=== PATIENT | female | born 1975 | race Caucasian/White ===

== ENCOUNTER 2025-05-28 16:05 | Emergency (ER) | payer OTHER, SELFPAY ==
--- OUTSIDE RECORDS SUMMARY | 2025-05-28 16:11 | XMS REPORT | Continuity of Care Document ---
Author Name Unknown Address [address] [place] [address] [facility] Address [address] [place] [address] Care Team Providers Care Paraffiner Name Role Phone PCP, PATIENT DOES NOT HAVE A Primary Care Physic maldonado Unavailable Charlotte Haines Attending Clinician Unavail able Ibrahima Tamze Attending Clinician Unavailable GEMMA ALFARO Attending Clinician Unavailab GEMMA Vanegas Attending Clinician Unavailab Gemma Vanegas DO Attending Clinician [phone] Luis Eduardo Escobar Attending Clinician Unavailable JUANCARLOS HORTON Attending Clinician Unavailable Juancarlos Evans Attending Clinician [phone] PABLITO ACE Attending Clinician Unavailable Pablito Ace MD Attending Clinician [phone] Doctor Unassigned, Luckey Attending Clinician Kimberley Luz MD Attending Clinician [phone] KIMBERLEY LOZADA Attending Clinician Unavailable [facility], Adc Cardio Fac Attending Clinician Unavail able 1, Adc Cardio Fac Room Attending Clinician Unava NILAY Corley APN Admitting Clinician Unavailable JUANCARLOS HORTON Admitting Clinician Unavailable PABLITO ACE Admitting Clinician Unavailable Payers Payer Name Policy Type Policy Number Effective Date Expirati on Date Source [employer] [id number] 2024 00:00:00 Problems Condition Name Condition Details Condition Category Status Onset Date Resolution Date Last Treatment Date Treating Clinician Comments Source [id number] Chronic fatigue Problem [facility] [id number] Overweight Problem Com mon [facility] [id number] Current moderate episode of major depressive disorder without prior episode Problem [facility] [id number] Vaginal bleeding Problem [facility] [id number] Recurrent major depressive disorder, in partial remission Problem [facility] [id number] Adrenal insufficie ncy Problem [facility] [id number] Primary insomnia Problem [facility] [id number] Anxiety, generalize d Problem [facility] [id number] Unable to concentrat e Problem [facility] [id number] Leukopenia , unspecifie d type Problem [facility] No known active problems No known active problems Disease [facility] Allergies, Adverse Reactions, Alerts Allergy Name Allergy Type Status Severity Reaction(s) Onset Date Inactive Date Treating Clinician Comments Source No Known Allergie s DA Active U 03-24 00:00: 00 [facility] Hydrocod one-Acet aminophe n Propensi ty to adverse reaction s Active Hives 02-19 00:00: 00 To face [facility] HYDROCOD ONE-ACET AMINOPHE N DRUG Active Hives 02-19 00:00: 00 [facility] Social History Social Habit Start Date Stop Date Quantity Comments Source History of Tobacco Use [facility] Sex Assigned At [facility] History SDOH Alcohol Binge [facility] SD[facility] Alcohol Frequency [facility] History SDOH Alcohol Std Drinks [facility] Alcoholic beverage intake 2024-05-23 00:00:00 2024-05-23 00:00:00 Current drinker of alcohol (finding) [facility] History of Social function 2024-05-23 00:00:00 2024-05-23 00:00:00 [facility] Exposure to SARS-CoV-2 (event) 2022-02-25 00:00:00 2022-03-07 17:31:[address] [facility] Alcohol intake 2022-02-23 00:00:00 2022-02-23 00:00:00 Current drinker of alcohol (finding) [facility] Tobacco use and exposure 2019-10-14 00:00:00 2019-10-14 00:00:00 Smokeless tobacco non-user [facility] Alcohol Comment 2016-02-20 00:00:00 2016-02-20 00:00:[address] [facility] Smoking Status Start Date Stop Date Source Never Smoker [facility] Medications Ordered Medication Name Filled Medication Name Start Date Stop Date Current Medication? Ordering Clinician Indication Dosage Frequency Signature (SIG) Comments Components Source Betamethaso ne Dipropionat e 0.05 % Betamethaso ne Dipropionat e 0.05 % -16 00:00: 00 No 1{appli cation} QD Betamethas one Dipropiona te 0.05 % Nitroglycer in 0.4 MG Nitroglycer in 0.4 MG 07 00:00: 00 No TID Nitroglyce rin 0.4 MG FLUoxetine HCl 20 MG FLUoxetine HCl 20 MG -11 00:00: 00 No 1{capsu le} QD FLUoxetine HCl 20 MG Kenalog (Triamcinol one) Kenalog (Triamcinol one) 05-28 00:00: 00 No 40mg [facility] cetirizine (ZYRTEC) tablet 10 mg 05-23 09:00: 00 05-23 08:15 :00 No 10mg 10 mg, Oral, ONCE, 1 dose, On Sun05/23/24 at 0400, [facility] predniSONE (DELTASONE) tablet 50 mg 05-23 08:15: 00 05-23 08:11 :00 No 50mg 50 mg, Oral, ONCE, 1 dose, On Sun05/23/24 at 0315, Routine [facility] predniSONE 10 mg tablet 05-23 00:00: 00 Yes [id number] Take 6 tablets by mouth daily for 4 days then take 4 tablets by mouth daily for 4 days then take 2 tablets by mouth daily for 4 days then take 1 tablet by mouth daily for 4 days then take 1/2 tablet by mouth daily for 4 days then stop. [facility] iopamidol (ISOVUE 370-500 mL) injection 70 mL 03-08 00:30: 00 03-07 23:16 :00 No [id number] 70mL 70 mL, Intravenou s, ONCE, 1 dose, On Sun03/07/22 at 1930, Routine [facility] FENTanyl PF (SUBLIMAZE (PF)) injection 50 mcg 03-07 22:59: 00 03-07 23:11 :00 No 50ug 50 mcg, Slow IV Push, ONCE, 1 dose, On Sun03/07/22 at 1800, STAT [facility] acetaminoph en-codeine (TYLENOL-CO DEINE #3) 300-30 mg tablet 03-07 00:00: 00 05-23 00:00 :00 No [id number] 1{tbl} Take 1 tablet by mouth every 8 (eight) hours as needed for Pain (scale 4-6). Indication s: acute pain [facility] methocarbam oL 500 mg tablet 03-07 00:00: 00 05-23 00:00 :00 No [id number] 500mg Take 1 tablet by mouth 3 (three) times daily as needed for Pain (scale 4-6) or Pain (scale 7-10). [facility] ketorolac (TORADOL) injection 30 mg 02-24 03:15: 00 02-24 02:13 :00 No 30mg 30 mg, Slow IV Push, ONCE, 1 dose, On Sun02/23/22 at 2215, Routine
[employer] team member approving Restricted medication : PABLITO ACE [facility] ibuprofen 800 mg tablet 5 00:00: 00 05-23 00:00 :00 No [id number] 800mg Take 1 tablet by mouth every 8 (eight) hours as needed for Pain (scale 4-6). [facility] phentermine 37.5 mg tablet 10-14 20:30: 57 Yes 37.5mg Take 37.5 mg by mouth daily with breakfast. [facility] ALPRAZolam (XANAX) 0.5 mg tablet 10-14 20:27: 35 Yes .5mg Take 0.5 mg by mouth at bedtime as needed. [facility] nitroglycer in 0.4 mg sublingual tablet 10-14 20:27: [address] 0.4 mg under the tongue every 5 (five) minutes as needed for Chest pain. [facility] phentermine 37.5 mg tablet 10-14 14:30: 57 Yes 37.5mg Take 37.5 mg by mouth daily with breakfast. [facility] ALPRAZolam (XANAX) 0.5 mg tablet 10-14 14:27: 35 Yes .5mg Take 0.5 mg by mouth at bedtime as needed. [facility] nitroglycer in 0.4 mg sublingual tablet 10-14 14:27: [address] 0.4 mg under the tongue every 5 (five) minutes as needed for Chest pain. [facility] No known medications No Un chelsey [facility] Immunizations Ordered Immunization Name Filled Immunization Name Date Status Comments Source Td 2016-02-20 00:00:[address] [facility] Td 2016-02-20 00:00:[address] [facility] Td 2016-02-20 00:00:[address] [facility] Td 2016-02-20 00:00:[address] [facility] Td 2016-02-20 00:00:[address] [facility] Td 2016-02-20 00:00:[address] [facility] Td 2016-02-20 00:00:[address] [facility] Td 2016-02-20 00:00:[address] [facility] Td 2016-02-20 00:00:[address] [facility] Td 2016-02-20 00:00:[address] [facility] TD, NOS Unknown Completed [facility] Vital Signs Vital Name Observation Time Observation Value Comments Criss monteiro height 2025-02-11 11:30:00 68 [in_i] Commo n [facility] weight 2025-02-11 11:30:00 164.4 [lb_av] Co mmon [facility] temperature 2025-02-11 11:30:00 97.2 [degF] Com mon [facility] bmi 2025-02-11 11:30:00 24.99 kg/m2 Comm on [facility] oximetry 2025-02-11 11:30:00 99 % Commo n [facility] respiratory rate 2025-02-11 11:30:00 16 /min [facility] blood pressure systolic 2025-02-11 11:30:00 118 mm[Hg] Common [facility] blood pressure diastolic 2025-02-11 11:30:00 62 mm[Hg] Common [facility] height 2025-01-14 11:30:00 68 [in_i] Commo n [facility] weight 2025-01-14 11:30:00 165.0 [lb_av] Co mmon [facility] temperature 2025-01-14 11:30:00 97.2 [degF] Com mon [facility] bmi 2025-01-14 11:30:00 25.09 kg/m2 Comm on [facility] oximetry 2025-01-14 11:30:00 100 % Commo n [facility] respiratory rate 2025-01-14 11:30:00 15 /min [facility] blood pressure systolic 2025-01-14 11:30:00 101 mm[Hg] [facility] blood pressure diastolic 2025-01-14 11:30:00 59 mm[Hg] Common [facility] height 2025-01-05 13:00:00 68 [in_i] Commo n [facility] weight 2025-01-05 13:00:00 165.0 [lb_av] Co mmon [facility] temperature 2025-01-05 13:00:00 97.3 [degF] Com mon [facility] bmi 2025-01-05 13:00:00 25.09 kg/m2 Comm on [facility] oximetry 2025-01-05 13:00:00 99 % Commo n [facility] respiratory rate 2025-01-05 13:00:00 16 /min [facility] blood pressure systolic 2025-01-05 13:00:00 124 mm[Hg] Common [facility] blood pressure diastolic 2025-01-05 13:00:00 62 mm[Hg] [facility] height 2024-12-16 10:30:00 68 [in_i] Commo n [facility] weight 2024-12-16 10:30:00 163 [lb_av] Comm on [facility] temperature 2024-12-16 10:30:00 97.2 [degF] Com [facility] bmi 2024-12-16 10:30:00 24.78 kg/m2 Comm on [facility] oximetry 2024-12-16 10:30:00 97 % Commo n [facility] blood pressure systolic 2024-12-16 10:30:00 122 mm[Hg] [facility] blood pressure diastolic 2024-12-16 10:30:00 60 mm[Hg] Common [facility] height 2024-06-11 13:30:00 69 [in_i] Commo n [facility] weight 2024-06-11 13:30:00 163.4 [lb_av] Co mmon [facility] temperature 2024-06-11 13:30:00 97.2 [degF] Com [facility] bmi 2024-06-11 13:30:00 24.13 kg/m2 Comm on [facility] oximetry 2024-06-11 13:30:00 99 % Commo n [facility] respiratory rate 2024-06-11 13:30:00 16 /min Common [facility] blood pressure systolic 2024-06-11 13:30:00 122 mm[Hg] [facility] blood pressure diastolic 2024-06-11 13:30:00 64 mm[Hg] [facility] height 2024-05-28 13:40:00 69 [in_i] Commo n [facility] weight 2024-05-28 13:40:00 164.4 [lb_av] Co mmon [facility] temperature 2024-05-28 13:40:00 97.3 [degF] Com [facility] bmi 2024-05-28 13:40:00 24.27 kg/m2 Comm on [facility] oximetry 2024-05-28 13:40:00 99 % Commo n [facility] respiratory rate 2024-05-28 13:40:00 17 /min [facility] blood pressure systolic 2024-05-28 13:40:00 96 mm[Hg] [facility] blood pressure diastolic 2024-05-28 13:40:00 56 mm[Hg] [facility] Systolic blood pressure 2024-05-23 08:00:00 123 mm[Hg] [facility] Diastolic blood pressure 2024-05-23 08:00:00 79 mm[Hg] [facility] Heart rate 2024-05-23 08:00:00 70 /min [facility] 2024-05-23 08:00:[address] [facility] Respiratory rate 2024-05-23 08:00:00 18 /min [facility] Body height 2024-05-23 08:00:00 175.3 cm [facility] Body weight 2024-05-23 08:00:00 73.483 kg [facility] BMI 2024-05-23 08:00:00 23.92 kg/m2 [facility] Oxygen saturation in Arterial blood by Pulse oximetry 2024-05-23 08:00:00 99 /min [facility] Systolic blood pressure 2022-03-08 01:18:00 125 mm[Hg] [facility] Diastolic blood pressure 2022-03-08 01:18:00 73 mm[Hg] [facility] Heart rate 2022-03-08 01:18:00 55 /min [facility] Respiratory rate 2022-03-08 01:18:00 20 /min [facility] Oxygen saturation in Arterial blood by Pulse oximetry 2022-03-08 01:18:00 98 /min [facility] Body temperature 2022-03-07 22:32:[address] [facility] Body height 2022-03-07 22:32:00 175.3 cm [facility] Body weight 2022-03-07 22:32:00 75.751 kg [facility] BMI 2022-03-07 22:32:00 24.66 kg/m2 [facility] Systolic blood pressure 2022-02-24 03:00:00 112 mm[Hg] [facility] Diastolic blood pressure 2022-02-24 03:00:00 76 mm[Hg] [facility] Heart rate 2022-02-24 03:00:00 49 /min [facility] Respiratory rate 2022-02-24 03:00:00 17 /min [facility] Oxygen saturation in Arterial blood by Pulse oximetry 2022-02-24 03:00:00 99 /min [facility] Body temperature 2022-02-24 00:40:[address] [facility] Body height 2022-02-24 00:40:00 175.3 cm [facility] Body weight 2022-02-24 00:40:00 75.297 kg [facility] BMI 2022-02-24 00:40:00 24.51 kg/m2 [facility] Systolic blood pressure 2019-10-14 20:26:00 102 mm[Hg] [facility] Diastolic blood pressure 2019-10-14 20:26:00 68 mm[Hg] [facility] Heart rate 2019-10-14 20:26:00 59 /min [facility] Respiratory rate 2019-10-14 20:26:00 19 /min [facility] Body height 2019-10-14 20:26:00 175.3 cm [facility] Body weight 2019-10-14 20:26:00 72.893 kg [facility] BMI 2019-10-14 20:26:00 23.73 kg/m2 [facility] Oxygen saturation in Arterial blood by Pulse oximetry 2019-10-14 20:26:00 98 /min [facility] Systolic blood pressure 2019-10-14 21:54:00 108 mm[Hg] [facility] Diastolic blood pressure 2019-10-14 21:54:00 67 mm[Hg] [facility] Heart rate 2019-10-14 21:54:00 50 /min [facility] Body height 2019-10-14 21:54:00 175.3 cm [facility] Body weight 2019-10-14 21:54:00 72.576 kg [facility] BMI 2019-10-14 21:54:00 23.63 kg/m2 [facility] Procedures Procedure Date / Time Performed Performing Clinicia n Source CT THORAX W CONTRAST 2022-03-07 23:26:[address] [facility] TROPONIN I 2022-03-07 23:03:00 Juancarlos Horton [facility] COMP. METABOLIC PANEL ([id number]) 2022-03-07 23:03:[address] [facility] CBC WITH DIFF 2022-03-07 23:03:00 Juancarlos Horton [facility] CONSENT/REFUSAL FOR DIAGNOSIS AND TREATMENT 2022-03-07 22:27:03 Doctor Unassigned, Luckey [facility] TROPONIN I 2022-02-24 01:41:00 Pablito Ace [facility] COMP. METABOLIC PANEL ([id number]) 2022-02-24 01:41:[address] [facility] CBC WITH DIFF 2022-02-24 01:41:00 Pablito Ace [facility] XR CHEST 1 VW 2022-02-24 01:36:00 Pablito Ace [facility] NOTICE OF PRIVACY PRACTICES 2022-02-24 00:27:05 Doctor Unassigned, Luckey [facility] CONSENT/REFUSAL FOR DIAGNOSIS AND TREATMENT 2022-02-24 00:26:43 Doctor Unassigned, Luckey [facility] EKG-12 LEAD 2019-10-14 20:34:27 Kimberley Lozada [facility] ASSIGNMENT OF BENEFITS 2019-10-14 19:52:12 Docto r Unassigned, Luckey [facility] Encounters Start Date/Time End Date/Time Encounter Type Admission Type Attending Clinicians Care Facility Care Department Encounter ID Source 2024-10-10 16:17:01 Outpatient EstebanCharlotte antonio [facility] [id number] [facility] 2024-09-29 12:29:00 Outpatient YancySaCharlotte [facility] [id number] [facility] 2024-06-11 12:31:00 Outpatient YancySaCharlotte [facility] [id number] [facility] 2024-06-09 14:57:00 Outpatient Ibrahima Tamez [facility] [id number] [facility] 2024-05-28 13:06:01 Outpatient Ibrahima Tamez [facility] [id number] [facility] 2025-03-02 00:00:00 2025-03-02 00:00:00 (TEL) STLMLC STLMLC [id number] [facility] 2025-02-16 00:00:00 2025-02-16 00:00:00 (TEL) STLMLC STLMLC [id number] [facility] 2025-02-11 00:00:00 2025-02-11 00:00:00 OFFICE VISIT ESTAB PT LEVEL 4 STLMLC STLMLC [id number] [facility] 2025-02-11 00:00:00 2025-02-11 00:00:00 (TEL) STLMLC STLMLC [id number] [facility] 2025-02-04 00:00:00 2025-02-04 00:00:00 (TEL) STLMLC STLMLC [id number] [facility] 2025-01-26 00:00:00 2025-01-26 00:00:00 OFFICE VISIT ESTAB PT LEVEL 3 STLMLC STLMLC [id number] [facility] 2025-01-23 00:00:00 2025-01-23 00:00:00 (TEL) STLMLC STLMLC [id number] [facility] 2025-01-15 00:00:00 2025-01-15 00:00:00 (TEL) STLMLC STLMLC [id number] [facility] 2025-01-14 00:00:00 2025-01-14 00:00:00 OFFICE VISIT ESTAB PT LEVEL 3 STLMLC STLMLC [id number] [facility] 2025-01-05 00:00:00 2025-01-05 00:00:00 OFFICE VISIT ESTAB PT LEVEL 3 STLMLC STLMLC [id number] [facility] 2024-12-16 00:00:00 2024-12-16 00:00:00 OFFICE VISIT ESTAB PT LEVEL 3 STLMLC STLMLC [id number] [facility] 2024-12-05 00:00:00 2024-12-05 00:00:00 OFFICE VISIT ESTAB PT LEVEL 3 STLMLC STLMLC [id number] [facility] 2024-12-05 00:00:00 2024-12-05 00:00:00 (TEL) STLMLC STLMLC [id number] [facility] 2024-12-04 00:00:00 2024-12-04 00:00:00 (TEL) STLMLC STLMLC [id number] [facility] 2024-12-04 00:00:00 2024-12-04 00:00:00 (TEL) STLMLC STLMLC [id number] [facility] 2024-10-13 00:00:00 2024-10-13 00:00:00 (TEL) STLMLC STLMLC [id number] [facility] 2024-10-10 00:00:00 2024-10-10 00:00:00 (TEL) STLMLC STLMLC [id number] [facility] 2024-06-13 00:00:00 2024-06-13 00:00:00 (TEL) STLMLC STLMLC [id number] [facility] 2024-06-11 00:00:00 2024-06-11 00:00:00 (WELLNESS) Wellness Visit STLMLC STLMLC [id number] [facility] 2024-06-11 00:00:00 2024-06-11 00:00:00 (WEB) STLMLC STLMLC [id number] [facility] 2024-05-28 00:00:00 2024-05-28 00:00:00 OFFICE VISIT NEW PT LEVEL 4 STLMLC STLMLC [id number] [facility] 2024-05-28 00:00:00 2024-05-28 00:00:00 (TEL) STLMLC STLMLC [id number] [facility] 2024-05-23 03:06:00 2024-05-23 04:29:00 Emergency X GEMMA ALFARO, GEMMA [facility] ERT [id number] [facility] 2024-05-23 03:06:00 2024-05-23 04:29:00 Emergency Gemma Alfaro [facility] [id number] [facility] 2023-03-24 16:17:00 2023-03-24 17:45:00 Emergency EM Luis Eduardo Escobar [facility] ER [id number] 2022-03-07 17:33:00 2022-03-07 20:35:00 Emergency X JUANCARLOS HORTON [facility] ERT [id number] [facility] 2022-03-07 17:33:00 2022-03-07 20:35:00 [facility] [id number] [facility] 2022-02-23 19:43:00 2022-02-23 22:20:00 Emergency X PABLITO ACE [facility] ERT [id number] [facility] 2022-02-23 19:43:00 2022-02-23 22:20:00 Emergency Pablito Ace [facility] 1..840.114 350.1.13.10 [id number] [id number] [facility] 2022-02-23 00:00:00 2022-02-23 00:00:00 Orders Only Doctor Unassigned, Luckey [facility] [id number] [id number] [id number] [id number] [facility] 2019-10-15 11:51:30 2019-12-26 14:53:55 [facility] [id number] [id number] [id number] [id number] [facility] 2019-11-24 00:00:00 2019-11-24 00:00:00 [facility] [id number] [id number] 4.2.7.2.686 [id number] [facility] 2019-10-14 13:52:17 2019-11-22 12:53:55 [facility] [id number] [id number] [id number] [id number] [facility] 2019-10-15 10:20:00 2019-10-15 11:51:41 Outpatient R [facility]NA[facility] [id number] [facility] 2019-10-15 00:00:00 2019-10-15 00:00:00 Patient Secure Msg [facility] [id number] [id number] 4.2.7.2.686 [id number] [facility] 2019-10-14 15:22:03 2019-10-14 16:22:03 Laboratory Only Tech, Adc Cardio Fac 1, Adc Cardio Fac Room Anmol [facility] [id number] [id number] [id number] [facility] 2019-10-14 00:00:00 2019-10-14 00:00:00 Orders Only Doctor Unassigned, Luckey [facility] [id number] [id number] 4.2.7.2.686 [id number] [facility] 2019-10-14 00:00:00 2019-10-14 00:00:00 Letter (Out) Kimberley Lozada [facility] [id number] [id number] [id number] [id number] [facility] Results Test Description Test Time Test Comments Results Result Co mments Source INDICATED URINE [id number] 00:00:00* Test Item Value Reference Range Interpretation Comme nts NUCLEATED RBCS (test code = 29291-7) 0.0 /100 WBC'S See_Comment [Automated message] The system which generated this result transmitted reference range: 0.0 /100 WBC'S. The reference range was not used to interpret this result as normal/abnormal. ABSOLUTE EOSINOPHILS (test code = 04798-4) 0.04 K/UL See_Comment [Automated message] The system which generated this result transmitted reference range: 0.00-0.50 K/UL. The reference range was not used to interpret this result as normal/abnormal. ABSOLUTE LYMPHOCYTES (test code = 04228-3) 1.84 K/UL See_Comment [Automated message] The system which generated this result transmitted reference range: 1.00-4.00 K/UL. The reference range was not used to interpret this result as normal/abnormal. ABSOLUTE MONOCYTES (test code = 49989-8) 0.38 K/UL See_Comment [Automated message] The system which generated this result transmitted reference range: 0.20-1.00 K/UL. The reference range was not used to interpret this result as normal/abnormal. ABSOLUTE NEUTROPHILS (test code = 50721-9) 2.03 K/UL See_Comment [Automated message] The system which generated this result transmitted reference range: 1.50-7.50 K/UL. The reference range was not used to interpret this result as normal/abnormal. BASOPHILS (test code = 54279-5) 0.9 % EOSINOPHILS (test code = 67402-4) 0.9 % HEMATOCRIT (test code = 31938-9) 39.2 % See_Comment [Automated message] The system which generated this result transmitted reference range: 34.0-45.0 %. The reference range was not used to interpret this result as normal/abnormal. HEMOGLOBIN (test code = 718-7) 13.2 G/DL See_Comment [Automated message] The system which generated this result transmitted reference range: 11.5-15.5 G/DL. The reference range was not used to interpret this result as normal/abnormal. LYMPHOCYTES (test code = 25682-5) 42.4 % MCH (test code = 61206-4) 31.0 PG See_Comment [Automated message] The system which generated this result transmitted reference range: 25.0-33.0 PG. The reference range was not used to interpret this result as normal/abnormal. MCHC (test code = 52109-6) 33.7 G/DL See_Comment [Automated message] The system which generated this result transmitted reference range: 31.0-36.0 G/DL. The reference range was not used to interpret this result as normal/abnormal. MCV (test code = 13783-8) 92.0 fL See_Comment [Automated message] The system which generated this result transmitted reference range: 80.0-99.0 fL. The reference range was not used to interpret this result as normal/abnormal. MONOCYTES (test code = 69134-8) 8.8 % NEUTROPHILS (test code = 02787-8) 46.8 % PLATELET COUNT (test code = 99302-0) 207 K/UL See_Comment [Automated message] The system which generated this result transmitted reference range: 130-400 K/UL. The reference range was not used to interpret this result as normal/abnormal. RBC (test code = 05756-5) 4.26 M/UL See_Comment [Automated message] The system which generated this result transmitted reference range: 3.80-5.40 M/UL. The reference range was not used to interpret this result as normal/abnormal. RDW (test code = 67842-4) 12.6 % See_Comment [Automated message] The system which generated this result transmitted reference range: 11.5-15.0 %. The reference range was not used to interpret this result as normal/abnormal. WBC (test code = 51210-8) 4.3 K/UL See_Comment [Automated message] The system which generated this result transmitted reference range: 3.5-11.0 K/UL. The reference range was not used to interpret this result as normal/abnormal. CORTISOL, RANDOM (test code = 2143-6) 3.0 UG/DL SEE BELOW UG/DL L HEMOGLOBIN A1c (test code = 4548-4) 5.4 % See_Comment [Automated message] The system which generated this result transmitted reference range: 4.2-5.6 %. The reference range was not used to interpret this result as normal/abnormal. TSH REFLEX TO FREE T4 (test code = 94951-2) 1.560 UIU/ML See_Comment [Automated message] The system which generated this result transmitted reference range: 0.400-4.100 UIU/ML. The reference range was not used to interpret this result as normal/abnormal. VITAMIN B-12 (test code = 2132-9) 630 PG/ML See_Comment [Automated message] The system which generated this result transmitted reference range: 200-950 PG/ML. The reference range was not used to interpret this result as normal/abnormal. VITAMIN D,1,25-DIHYDROXY (test code = 1649-3) 76.1 PG/ML See_Comment [Automated message] The system which generated this result transmitted reference range: 20.0-82.0 PG/ML. The reference range was not used to interpret this result as normal/abnormal. APPEARANCE (test code = 5767-9) CLEAR CLEAR BACTERIA (test code = 48469-7) NONE SEEN NONE SEEN BILIRUBIN (test code = 5770-3) NEGATIVE NEGATIVE CASTS, HYALINE (test code = 47005-1) NONE SEEN NONE-TRACE COLOR (test code = 5778-6) YELLOW YELLOW-STRAW EPITHELIAL CELLS (test code = 73696-5) 0-5 /HPF See_Comment [Automated message] The system which generated this result transmitted reference range: 0-10 /HPF. The reference range was not used to interpret this result as normal/abnormal. GLUCOSE (test code = 5792-7) NEGATIVE NEGATIVE KETONES (test code = 5797-6) NEGATIVE NEGATIVE LEUKOCYTE ESTERASE (test code = 5799-2) TRACE NEGATIVE A NITRITE (test code = 5802-4) NEGATIVE NEGATIVE OCCULT BLOOD (test code = 97509-8) NEGATIVE NEGATIVE pH (test code = 5803-2) 5.5 5.0-9.0 PROTEIN (test code = 26695-8) NEGATIVE NEGATIVE RED BLOOD CELLS (test code = 23587-8) 0-2 /HPF See_Comment [Automated message] The system which generated this result transmitted reference range: 0-2 /HPF. The reference range was not used to interpret this result as normal/abnormal. SPECIFIC GRAVITY (test code = 5811-5) 1.017 1.005-1.035 UROBILINOGEN (test code = 55980-1) 1.0 MG/DL See_Comment [Automated message] The system which generated this result transmitted reference range: <=2.0 MG/DL. The reference range was not used to interpret this result as normal/abnormal. WHITE BLOOD CELLS (test code = 89465-1) 6-10 /HPF See_Comment A [Automated message] The system which generated this result transmitted reference range: 0-5 /HPF. The reference range was not used to interpret this result as normal/abnormal. CALC LDL CHOL (test code = 93241-9) 116 MG/DL See_Comment H [Automated message] The system which generated this result transmitted reference range: <100 MG/DL. The reference range was not used to interpret this result as normal/abnormal. CHOLESTEROL (test code = 2093-3) 208 MG/DL See_Comment H [Automated message] The system which generated this result transmitted reference range: <200 MG/DL. The reference range was not used to interpret this result as normal/abnormal. HDL CHOLESTEROL (test code = 2085-9) 77 MG/DL See_Comment [Automated message] The system which generated this result transmitted reference range: >39 MG/DL. The reference range was not used to interpret this result as normal/abnormal. RISK RATIO LDL/HDL (test code = 15388-2) 1.51 RATIO See_Comment [Automated message] The system which generated this result transmitted reference range: <3.22 RATIO. The reference range was not used to interpret this result as normal/abnormal. TRIGLYCERIDES (test code = 2571-8) 48 MG/DL See_Comment [Automated message] The system which generated this result transmitted reference range: <150 MG/DL. The reference range was not used to interpret this result as normal/abnormal. ALBUMIN (test code = 1751-7) 4.3 G/DL See_Comment [Automated message] The system which generated this result transmitted reference range: 3.5-5.2 G/DL. The reference range was not used to interpret this result as normal/abnormal. ALKALINE PHOSPHATASE (test code = 6768-6) 70 U/L See_Comment [Automated message] The system which generated this result transmitted reference range: 40-125 U/L. The reference range was not used to interpret this result as normal/abnormal. BILIRUBIN, TOTAL (test code = 1975-2) 0.3 MG/DL See_Comment [Automated message] The system which generated this result transmitted reference range: <=1.2 MG/DL. The reference range was not used to interpret this result as normal/abnormal. BUN (test code = 3094-0) 13 MG/DL See_Comment [Automated message] The system which generated this result transmitted reference range: 6-20 MG/DL. The reference range was not used to interpret this result as normal/abnormal. CALCIUM (test code = 39543-4) 9.8 MG/DL See_Comment [Automated message] The system which generated this result transmitted reference range: 8.5-10.5 MG/DL. The reference range was not used to interpret this result as normal/abnormal. CALC A/G RATIO (test code = 1759-0) 1.7 RATIO See_Comment [Automated message] The system which generated this result transmitted reference range: 1.0-2.6 RATIO. The reference range was not used to interpret this result as normal/abnormal. CALC BUN/CREAT (test code = 3097-3) 13 RATIO See_Comment [Automated message] The system which generated this result transmitted reference range: 6-28 RATIO. The reference range was not used to interpret this result as normal/abnormal. CALC GLOBULIN (test code = 08531-2) 2.6 G/DL See_Comment [Automated message] The system which generated this result transmitted reference range: 1.9-3.7 G/DL. The reference range was not used to interpret this result as normal/abnormal. CARBON DIOXIDE (test code = 1963-8) 28 MEQ/L See_Comment [Automated message] The system which generated this result transmitted reference range: 19-31 MEQ/L. The reference range was not used to interpret this result as normal/abnormal. CHLORIDE (test code = 2075-0) 104 MEQ/L See_Comment [Automated message] The system which generated this result transmitted reference range: 95-107 MEQ/L. The reference range was not used to interpret this result as normal/abnormal. CREATININE (test code = 2160-0) 1.01 MG/DL See_Comment [Automated message] The system which generated this result transmitted reference range: 0.60-1.30 MG/DL. The reference range was not used to interpret this result as normal/abnormal. eGFR (2020 CKD-EPI) (test code = 42415-4) 68 ML/MIN/1.73 See_Comment [Automated message] The system which generated this result transmitted reference range: >60 ML/MIN/1.73. The reference range was not used to interpret this result as normal/abnormal. GLUCOSE (test code = 1558-6) 77 MG/DL See_Comment [Automated message] The system which generated this result transmitted reference range: 70-99 MG/DL. The reference range was not used to interpret this result as normal/abnormal. POTASSIUM (test code = 2823-3) 4.1 MEQ/L See_Comment [Automated message] The system which generated this result transmitted reference range: 3.5-5.4 MEQ/L. The reference range was not used to interpret this result as normal/abnormal. PROTEIN, TOTAL (test code = 2885-2) 6.9 G/DL See_Comment [Automated message] The system which generated this result transmitted reference range: 6.1-8.3 G/DL. The reference range was not used to interpret this result as normal/abnormal. AST (test code = 1920-8) 13 U/L See_Comment [Automated message] The system which generated this result transmitted reference range: 9-40 U/L. The reference range was not used to interpret this result as normal/abnormal. ALT (test code = 1742-6) 14 U/L See_Comment [Automated message] The system which generated this result transmitted reference range: 5-40 U/L. The reference range was not used to interpret this result as normal/abnormal. SODIUM (test code = 2951-2) 140 MEQ/L See_Comment [Automated message] The system which generated this result transmitted reference range: 133-146 MEQ/L. The reference range was not used to interpret this result as normal/abnormal. D-DIMER [id number] 16:58:00* Test Item Value Reference Range Interpretation Comme nts D-DIMER QUANT (test code = DDIMER) < 100 D-DU 0-400 N Alere Triage values presented in units of mass (ng/mL)of D-dimer, also known as D-dimer units (D-DU).* Cut-off: 400 ng/mL Results of the D-Dimer test should always be interpretedin conjunction with the patient's medical history, clinicalpresentation, and other findings. Clinical diagnosis shouldnot be based on the results of D-Dimer alone.Patients with a distal DVT may have a normal D-Dimer result. TROP-I HIGH [id number] 16:50:00* Test Item Value Reference Range Interpretation Comme nts TROP-I HIGH SENSITIVITY (test code = TROPIHS) < 4 ng/L < 51 - The use of serial sampling and testing protocol is a recommended practice.- An elevated troponin level alone is often not sufficient for diagnosis of myocardial infarction.Results of this assay method may be falsely depressed orelevated if patient is taking high doses of Biotin. COMPREHENSIVE METABOLIC [id number] 16:50:00* Test Item Value Reference Range Interpretation Comme nts SODIUM (test code = NA) 142 MMOL/L 133-145 N POTASSIUM (test code = K) 3.3 MMOL/L 3.6-5.2 L CHLORIDE (test code = CL) 107 MMOL/L 100-108 N CARBON DIOXIDE (test code = CO2) 23 MMOL/L 22-32 N GLUCOSE (test code = GLU) 101 MG/DL 65-99 H Results of this assay method may be falsely depressed orelevated if patient is taking sulfasalazine. BLOOD UREA NITROGEN (test code = BUN) 12 MG/DL 6-20 N GLOMERULAR FILTRATION RATE (test code = GFR) 81 58-135 N The Glomerular Filtration Rate is a calculated parameterbased on serum Creatinine, patient age and sex. GFR valuesless than 60 mL/min/1.73 square meters are indicative ofChronic Kidney Disease. Values less than 15 mL/min/1.73square meters indicate Kidney failure. The calculation forGFR is based on the CKD-EPI (202) calculation. This formulais race indifferent and is the recommended formula for GFRby the National Kidney Foundation for Adults.The GFR will not calculate if the sex is unknown or if thepatient's age is <18 years. CREATININE (test code = CREAT) 0.88 MG/DL 0.60-1.00 N TOTAL PROTEIN (test code = PROT) 6.3 G/DL 6.4-8.2 L ALBUMIN (test code = ALB) 3.5 G/DL 3.4-5.0 N GLOBULIN (test code = GLOB) 2.8 G/DL 1.5-3.8 N ALBUMIN/GLOBULIN RATIO (test code = A/G) 1.3 1.1-2.2 N CALCIUM (test code = CA) 8.8 MG/DL 8.7-10.5 N BILIRUBIN TOTAL (test code = BILT) 0.7 MG/DL 0.0-1.0 N SGOT/AST (test code = AST) 17 Units/L 15-37 N Results of this assay method may be falsely depressed orelevated if patient is taking sulfasalazine. SGPT/ALT (test code = ALT) 22 Units/L 30-65 L Results of this assay method may be falsely depressed orelevated if patient is taking sulfasalazine. ALKALINE PHOSPHATASE TOTAL (test code = ALKP) 68 Units/L 50-136 N HCG SERUM [id number] 16:41:00* Test Item Value Reference Range Interpretation Comme nts HCG SERUM QUAL (test code = HCGQL) NEGATIVE NEGATIVE False negatives may occur when levels of hCGare below 10 mIU/ml. When is still suspected, a new specimenshould be obtained after 48 hours and re-tested.If waiting 48 hours is not medically advisable,the test result should be confirmed using aquantitative hCG assay. CBC W/AUTO [id number] 16:35:00* Test Item Value Reference Range Interpretation Comme nts WHITE BLOOD CELL (test code = WBC) 10.44 x10 3/uL 4.80-10.80 N RED BLOOD CELL (test code = RBC) 4.07 x10 6/uL 4.2-5.4 L HEMOGLOBIN (test code = HGB) 12.1 G/DL 12.0-16.0 N HEMATOCRIT (test code = HCT) 36.4 % 37-47 L MEAN CELL VOLUME (test code = MCV) 89.4 FL 81-99 N MEAN CELL HGB (test code = MCH) 29.7 PG 27-31 N MEAN CELL HGB CONCENTRATION (test code = MCHC) 33.2 G/DL 33-37 N RED CELL DISTRIBUTION WIDTH (test code = RDW) 12.5 % 11.5-14.5 N PLATELET COUNT (test code = PLT) 162 x10 3/uL 150-450 N MEAN PLATELET VOLUME (test code = MPV) 10.2 FL 7.4-10.4 N NEUTROPHIL % (test code = NT%) 84.8 % 42-86 N LYMPHOCYTE % (test code = LY%) 7.1 % 24-44 L MONOCYTE % (test code = MO%) 7.8 % 0.0-4.0 H EOSINOPHIL % (test code = EO%) 0.2 % 0.0-2.7 N BASOPHIL % (test code = BA%) 0.1 % 0.0-0.5 N NEUTROPHIL # (test code = NT#) 8.86 x10 3/uL 1.8-7.7 H LYMPHOCYTE # (test code = LY#) 0.74 x10 3/uL 1.0-4.8 L MONOCYTE # (test code = MO#) 0.81 x10 3/uL 0.0-0.8 H EOSINOPHIL # (test code = EO#) 0.02 x10 3/uL 0.0-0.5 N BASOPHIL # (test code = BA#) 0.01 x10 3/uL 0.0-0.2 N TROPONIN [id number] 23:47:20* Test Item Value Reference Range Interpretation Comments TROPONIN I (test code = 4971154670) 0.001 ng/mL See_Comment [Automated message] The system which generated this result transmitted reference range: <=0.034. The reference range was not used to interpret this result as normal/abnormal. CINDY (test code = CINDY) Reference (Normal) Range (defined by the 99th percentile reference limit): <= 0.034 ng/mL Note: Cardiac troponin begins to rise 3-4 hours after the onset of ischemia. Repeat in 4-6 hours if the sample was drawn within 3-4 hours of the onset of the symptom and found normal. Diagnosis of myocardial injury is made with acute changes in cTn concentrations with at least one serial sample above the 99th percentile upper reference limit (URL), taken together with the patient's clinical presentation. Biotin has been reported to cause a negative bias, interpret results relative to patient's use of biotin. Lab Interpretation (test code = 46573-9) Normal [facility]. METABOLIC PANEL ([id number])2022-03-07 23:37:41* Test Item Value Reference Range Interpretation Comme nts NA (test code = 8024199646) 138 mmol/L 135-145 K (test code = 5834683832) 3.9 mmol/L 3.5-5.0 CL (test code = 2431308955) 109 mmol/L 98-108 H CO2 TOTAL (test code = 3030694752) 21 mmol/L 23-31 L AGAP (test code = 0599316906) 2-16 BUN (test code = 0184248797) 15 mg/dL 7-23 GLUCOSE (test code = 9276665324) 94 mg/dL 70-110 CREATININE (test code = 1006365898) 0.66 mg/dL 0.50-1.04 TOTAL BILI (test code = 1559518233) 0.6 mg/dL 0.1-1.1 CALCIUM (test code = 4103170295) 9.9 mg/dL 8.6-10.6 T PROTEIN (test code = 6287050081) 7.3 g/dL 6.3-8.2 ALBUMIN (test code = 6341344988) 4.4 g/dL 3.5-5.0 ALK PHOS (test code = 2997177119) 78 U/L 34-122 ALTv (test code = 1742-6) 26 U/L 5-35 AST(SGOT) (test code = 3286347392) 27 U/L 13-40 eGFR (test code = 2268113883) mL/min/1.73m2 CINDY (test code = CINDY) Association of Glomerular Filtration Rate (GFR) and Staging of Kidney Disease* + --+ --+ ------+| GFR (mL/min/1.73 m2) ?| With Kidney Damage ?| ?Without Kidney Damage+ --------+ --------+ +| ?>90 ?| ?Stage one ?| ? Normal ?+ ---+ ---+ -------+| ?60-89 ?| ?Stage two ?| ? Decreased GFR ? + --+ --+ ------+| ?30-59 ?| ?Stage three ?| ? Stage three ? + --+ --+ ------+| ?15-29 ?| ?Stage four ? | ? Stage four ?+ ---+ ---+ -------+| ?<15 (or dialysis) ? ?| ?Stage five ? | ? Stage five ?+ ---+ ---+ -------+ *Each stage assumes the associated GFR level has been in effect for at least three months. ?Stages 1 to 5, with or without kidney disease, indicate chronic kidney disease. Notes: Determination of stages one and two (with eGFR >59mL/min/1.73 m2) requires estimation of kidney damage for at least three months as defined by structural or functional abnormalities of the kidney, manifested by either:Pathological abnormalities or Markers of kidney damage (including abnormalities in the composition of the blood or urine or abnormalities in imaging tests). Lab Interpretation (test code = 42994-9) Abnormal [facility] WITH [id number] 23:15:57* Test Item Value Reference Range Interpretation Comme nts WBC (test code = 6690-2) See_Comment L [Automated [employer]] The system which generated this result transmitted reference range: 4.30 - 11.10 10*3/?L. The reference range was not used to interpret this result as normal/abnormal. RBC (test code = 789-8) See_Comment [Automated [employer]] The system which generated this result transmitted reference range: 3.93 - 5.25 10*6/?L. The reference range was not used to interpret this result as normal/abnormal. HGB (test code = 718-7) 13.0 g/dL 11.6-15.0 HCT (test code = 4544-3) 38.6 % 35.7-45.2 MCV (test code = 787-2) 90.0 fL 80.6-95.5 MCH (test code = 785-6) 30.3 pg 25.9-32.8 MCHC (test code = 786-4) 33.7 g/dL 31.6-35.1 RDW-SD (test code = 94008-9) 42.3 fL 39.0-49.9 RDW-CV (test code = 788-0) 13.1 % 12.0-15.5 PLT (test code = 777-3) See_Comment [Automated messa ge] The system which generated this result transmitted reference range: 166 - 358 10*3/?L. The reference range was not used to interpret this result as normal/abnormal. MPV (test code = 35736-0) 10.4 fL 9.5-12.9 NRBC/100 WBC (test code = 9138931919) See_Comment [Automated [employer]] The system which generated this result transmitted reference range: 0.0 - 10.0 /100 WBCs. The reference range was not used to interpret this result as normal/abnormal. NRBC x10^3 (test code = 7894574061) <0.01 See_Comment [Automated messa ge] The system which generated this result transmitted reference range: 10*3/?L. The reference range was not used to interpret this result as normal/abnormal. GRAN MAT (NEUT) % (test code = 770-8) 62.6 % IMM GRAN % (test code = 4521288267) 0.20 % LYMPH % (test code = 736-9) 26.5 % MONO % (test code = 5905-5) 9.0 % EOS % (test code = 713-8) 1.0 % BASO % (test code = 706-2) 0.7 % GRAN MAT x10^3(ANC) (test code = 5664274287) 2.57 10*3/uL 1.88-7.09 IMM GRAN x10^3 (test code = 7796839799) <0.03 0.00-0.06 LYMPH x10^3 (test code = 731-0) 1.09 10*3/uL 1.32-3.29 L MONO x10^3 (test code = 742-7) 0.37 10*3/uL 0.33-0.92 EOS x10^3 (test code = 711-2) 0.04 10*3/uL 0.03-0.39 BASO x10^3 (test code = 704-7) 0.03 10*3/uL 0.01-0.07 Lab Interpretation (test code = 50933-2) Abnormal [facility] WITH [id number] 02:33:42* Test Item Value Reference Range Interpretation Comme nts WBC (test code = 6690-2) See_Comment [Automated messa ge] The system which generated this result transmitted reference range: 4.30 - 11.10 10*3/?L. The reference range was not used to interpret this result as normal/abnormal. RBC (test code = 789-8) See_Comment [Automated [employer]] The system which generated this result transmitted reference range: 3.93 - 5.25 10*6/?L. The reference range was not used to interpret this result as normal/abnormal. HGB (test code = 718-7) 13.0 g/dL 11.6-15.0 HCT (test code = 4544-3) 39.4 % 35.7-45.2 MCV (test code = 787-2) 90.6 fL 80.6-95.5 MCH (test code = 785-6) 29.9 pg 25.9-32.8 MCHC (test code = 786-4) 33.0 g/dL 31.6-35.1 RDW-SD (test code = 85435-3) 41.2 fL 39.0-49.9 RDW-CV (test code = 788-0) 12.4 % 12.0-15.5 PLT (test code = 777-3) See_Comment [Automated [employer]] The system which generated this result transmitted reference range: 166 - 358 10*3/?L. The reference range was not used to interpret this result as normal/abnormal. MPV (test code = 48247-3) 10.0 fL 9.5-12.9 NRBC/100 WBC (test code = 6303917556) See_Comment [Automated [employer]] The system which generated this result transmitted reference range: 0.0 - 10.0 /100 WBCs. The reference range was not used to interpret this result as normal/abnormal. NRBC x10^3 (test code = 7143665079) <0.01 See_Comment [Automated [employer]] The system which generated this result transmitted reference range: 10*3/?L. The reference range was not used to interpret this result as normal/abnormal. SEG % (test code = 44857-5) 33 % 33-76 BAND % (test code = 95886-0) 2 % 0-1 H LYMPH % (test code = 23707-3) 56 % 14-54 H MONO % (test code = 16298-6) 7 % 0-4 H EOS % (test code = 28868-6) 1 % 0-3 BASO % (test code = 02929-7) 1 % 0-1 ANC (test code = 753-4) 1.77 10*3/uL 1.88-7.09 L Lab Interpretation (test code = 51905-9) [id number] 02:13:55* Test Item Value Reference Range Interpretation Comments TROPONIN I (test code = 7242976548) 0.003 ng/mL See_Comment [Automated message] The system which generated this result transmitted reference range: <=0.034. The reference range was not used to interpret this result as normal/abnormal. CINDY (test code = CINDY) Reference (Normal) Range (defined by the 99th percentile reference limit): <= 0.034 ng/mL Note: Cardiac troponin begins to rise 3-4 hours after the onset of ischemia. Repeat in 4-6 hours if the sample was drawn within 3-4 hours of the onset of the symptom and found normal. Diagnosis of myocardial injury is made with acute changes in cTn concentrations with at least one serial sample above the 99th percentile upper reference limit (URL), taken together with the patient's clinical presentation. Biotin has been reported to cause a negative bias, interpret results relative to patient's use of biotin. Lab Interpretation (test code = 80104-3) [facility] ([id number])2022-02-24 02:02:15* Test Item Value Reference Range Interpretation Comme nts NA (test code = 2031472607) 142 mmol/L 135-145 K (test code = 3912571489) 4.2 mmol/L 3.5-5.0 CL (test code = 6900178441) 106 mmol/L 98-108 CO2 TOTAL (test code = 7915217228) 25 mmol/L 23-31 AGAP (test code = 5965278253) 2-16 BUN (test code = 3062183980) 15 mg/dL 7-23 GLUCOSE (test code = 9909269328) 86 mg/dL 70-110 CREATININE (test code = 5445011317) 0.70 mg/dL 0.50-1.04 TOTAL BILI (test code = 4679493490) 0.4 mg/dL 0.1-1.1 CALCIUM (test code = 2622221024) 9.7 mg/dL 8.6-10.6 T PROTEIN (test code = 5211862524) 7.3 g/dL 6.3-8.2 ALBUMIN (test code = 6065897690) 4.5 g/dL 3.5-5.0 ALK PHOS (test code = 0185371316) 72 U/L 34-122 ALTv (test code = 1742-6) 20 U/L 5-35 AST(SGOT) (test code = 9485291391) 26 U/L 13-40 eGFR (test code = 1633927891) mL/min/1.73m2 CINDY (test code = CINDY) Association of Glomerular Filtration Rate (GFR) and Staging of Kidney Disease* + + +- +| GFR (mL/min/1.73 m2) ?| With Kidney Damage ?| ?Without Kidney Damage+ ------+ ----+ ------+| ?>90 ?| ?Stage one ?| ? Normal ?+ -+ + -+| ?60-89 ?| ?Stage two ?| ? Decreased GFR ? + + +- +| ?30-59 ?| ?Stage three ?| ? Stage three ? + + +- +| ?15-29 ?| ?Stage four ? | ? Stage four ?+ -+ + -+| ?<15 (or dialysis) ? ?| ?Stage five ? | ? Stage five ?+ -+ + -+ *Each stage assumes the associated GFR level has been in effect for at least three months. ?Stages 1 to 5, with or without kidney disease, indicate chronic kidney disease. Notes: Determination of stages one and two (with eGFR >59mL/min/1.73 m2) requires estimation of kidney damage for at least three months as defined by structural or functional abnormalities of the kidney, manifested by either:Pathological abnormalities or Markers of kidney damage (including abnormalities in the composition of the blood or urine or abnormalities in imaging tests). [facility] Notes Date/Time Note Provider Source 2024-05-23 04:27:11 Pt given printed and verbal discharge instructions regarding allergic reaction Prescriptions provided: predniSONE 10 mg tablet Pt verbalized understanding of instructions, pt awake alert oriented, resp reg unlabored, skin w/d, color appropriate for race, moves all ext well,pt encouraged to follow up with pcp Advised to seek medical attention for new/prolonged/worsening of symptoms No adverse reaction to meds given in ER noted upon discharge Awake, alert oriented, resp reg unlabored, skin w/d, pt leaving amb with steady gait, in no apparent distress Vy Pete RN [facility] 2024-05-23 02:59:26 C/o face feeling like it is on fire that began after taking a shower the night before around 2029. 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 treatment: Other (comment) TAR WORKER treatment comments: melatonin for sleeping at 1999 last night Travel and Exposure Screening: Symptoms Does patient have any of these symptoms?: (not recorded) Exposure Screening Has patient had contact with someone with a communicable disease in the last month?: (not recorded) Diseases exposed to:: (not recorded) Is Patient ?: (not recorded) Exposure Date: (not recorded) Chief Complaint: Chief Complaint Patient presents with Allergic reaction History of Present Illness: The patient presents from home for evaluation for feeling her face burning that she took a shower around 8:30 PM yesterday evening. She denies any new lotions, soaps or detergents. No shortness of breath. No tightness or swelling of her throat. No change in her voice. No medication taken prior to arrival. She denies symptoms in the past. Here for evaluation. Past Medical History/Immunizations: History reviewed. No pertinent past medical history. Tetanus received in last 5 years: No Childhood immunizations: Up-to-date Allergies: Allergies Allergen Reactions Vicodin [Hydrocodone-Acetaminophen] Hives To face Past Social History: Tobacco Use Never smoked or used smokeless tobacco. Alcohol Use Yes. Comments: socially Drug Use No. Past Surgical History: Past Surgical History: Procedure Laterality Date HYSTERECTOMY 2002 Review of Systems: Review of Systems Constitutional: Negative for chills and fever. Respiratory: Negative for cough and shortness of breath. Cardiovascular: Negative for chest pain. Gastrointestinal: Negative for abdominal pain and vomiting. Genitourinary: Negative for dysuria. Musculoskeletal: Negative for arthralgias, neck pain and neck stiffness. Skin: Positive for rash. Negative for wound. Neurological: Negative for dizziness. Psychiatric/Behavioral: Negative for agitation. Endocrine: Negative for goiter. Physical Exam: ED Triage Vitals [05/23/24 0300] Weight 73.5 kg (162 lb) Actual or estimated Actual Height 1.753 m (5' 9") BP 123/79 Pulse 70 Resp 18 Temp 36.7 ?C (98 ?F) Temp source Oral SpO2 99 % Measured on Room air Physical Exam Vitals and nursing note reviewed. Constitutional: Appearance: Normal appearance. She is normal weight. HENT: Head: Normocephalic and atraumatic. Mouth/Throat: Mouth: Mucous membranes are moist. Pharynx: Oropharynx is clear. No oropharyngeal exudate or posterior oropharyngeal erythema. Comments: Airway is patent. No swelling of the posterior pharynx. No stridor. She is able to control her secretions without difficulty. Cardiovascular: Rate and Rhythm: Normal rate and regular rhythm. Pulses: Normal pulses. Pulmonary: Effort: Pulmonary effort is normal. No respiratory distress. Breath sounds: No stridor. No wheezing or rhonchi. Abdominal: General: There is no distension. Palpations: Abdomen is soft. There is no mass. Tenderness: There is no abdominal tenderness. There is no guarding. Hernia: No hernia is present. Musculoskeletal: General: Normal range of motion. Cervical back: Normal range of motion and neck supple. Skin: General: Skin is warm and dry. Comments: Small amount erythema noted in the infraorbital area bilaterally. Neurological: General: No focal deficit present. Mental Status: She is alert and oriented to person, place, and time. Radiology: No orders to display Lab Results: Lab Results - No data to display EKG: If EKG completed, see Procedure Note. Orders and Treatments: No orders of the defined types were placed in this encounter. Orders Placed This Encounter Medications cetirizine (ZYRTEC) tablet 10 mg predniSONE (DELTASONE) tablet 50 mg predniSONE 10 mg tablet First Provider Eval: ED Events Date/Time Event User Comments 05/23/24258 Medical Screening Begins GEMMA ALFARO DO -- 05/23/24258 First Provider Evaluation GEMMA ALFARO DO -- ED COURSE Diagnosis/Impression as of 05/23/24 0420 Allergic reaction, initial encounter Procedures: Procedures MDM: Medical Decision Making The patient presents from home for evaluation for burning to her face that she felt around 8:30 PM yesterday evening when she took a shower. She denies any new lotions, soaps or products that she has applied to her face, body or hair. No medications taken prior to arrival. No shortness of breath. No change in her voice. No throat swelling or tightness. Vital signs are stable in the ER. Her lungs are clear bilaterally. Her posterior pharynx is patent and without any swelling or erythema. There is minimal erythema noted below her bilateral eyes. Will give prednisone and Zyrtec and monitor for signs of improvement. Anticipate discharge home later. 0415 - the patient is doing well here in the EC. She does recall that she was outside with mowing yesterday and is suspects she might have been exposed to poison william/oak. Will treat with a long tapering dose of steroids. She remains stable here in the EC and is ok for dc home with pcp f/u. Problems Addressed: Allergic reaction, initial encounter: acute illness or injury Risk OTC drugs. Prescription drug management. Flowsheet Documentation: Scoring Tools: No data recorded Disposition/Condition: ED Disposition ED Disposition Disch - Home Condition Stable Comment -- Discharge Medications: Patient's Medications START taking these medications PREDNISONE 10 MG TABLET Take 6 tablets by mouth daily for 4 days then take 4 tablets by mouth daily for 4 days then take 2 tablets by mouth daily for 4 days then take 1 tablet by mouth daily for 4 days then take 1/2 tablet by mouth daily for 4 days then stop. CONTINUE taking these medications which have NOT CHANGED ALPRAZOLAM (XANAX) 0.5 MG TABLET Take 0.5 mg by mouth at bedtime as needed. NITROGLYCERIN 0.[address] 0.4 mg under the tongue every 5 (five) minutes as needed for Chest pain. PHENTERMINE 37.5 MG TABLET Take 37.5 mg by mouth daily with breakfast. START taking Modified Medications as Prescribed No medications on file STOP taking these medications ACETAMINOPHEN-CODEINE (TYLENOL-CODEINE #3) 300-30 MG TABLET Take 1 tablet by mouth every 8 (eight) hours as needed for Pain (scale 4-6). Indications: acute pain IBUPROFEN 800 MG TABLET Take 1 tablet by mouth every 8 (eight) hours as needed for Pain (scale 4-6). METHOCARBAMOL 500 MG TABLET Take 1 tablet by mouth 3 (three) times daily as needed for Pain (scale 4-6) or Pain (scale 7-10). Follow-up: Electronically signed by: Gemma Alfaro DO 05/23/24419 [facility] 2023-03-24 16:24:00 [facility] OR A CAMPUS OF [facility] EMERGENCY PROVIDER REPORT REPORT#:[id number] REPORT STATUS: Signed DATE:03/24/23 TIME: 1623 PATIENT: ZULEIMA OLSON UNIT #: [id number] ROOM/BED: AGE: 47 SEX: F PCP PHYS: Undefined Provider SERVICE AUTHOR: Luis Eduardo Escobar MD * ALL edits or amendments must be made on the electronic/computer document * HPI-Syncope General Confirmed Patient Yes Initial Greet Date/Time 03/24/231621 Presentation Chief Complaint Lost consciousness Hx Obtained From Patient, EMS )( Onset Occurred Sudden Context Similar Sx Previous Yes Free Text HPI Notes Free Text HPI Notes She came in by ambulance today after a syncopal episode. She was in the restaurant outside under the shade when she passed out. She was sitting down. She was about to eat. She denies any known diabetes or hypertension. Denies any chest pain. Prior to passing out she was dizzy. History of similar episode 6 months ago. She denies taking any medications. Non-smoker, nondrinker. she was given 1 liter of ns per ems. Risk-Syncope Risk Stratification Trini Coma Score: Copyright Sir Regino Lares Copyright Sir Regino Lares Eye opening: (4) Spontaneous Verbal response: (5) Oriented Best motor response: (6) Obeys commands GCS Score: 15 )( Coronary Artery Disease Risk factors reviewed )( Thoracic Aortic Dissection Risk factors reviewed )( Pulmonary Embolism Risk factors reviewed Review of Systems ROS Statements All systems rev neg except as marked. Focused Review of Systems Constitutional Denies: Chills, Fever. Respiratory Denies: Cough, non-productive, Shortness of breath. Cardiovascular Denies: Chest pain. GI Denies: Abdominal pain, Diarrhea, Nausea, Vomiting. Musculoskeletal Denies: Myalgia, Neck pain. Skin Denies: Diaphoresis. Neurologic Reports: Dizziness, Syncope. Denies: Headache, Lightheaded, Numbness. Past Medical History - Adult Stated Complaint SYNCOPE Allergies Coded Allergies: No Known Allergies (03/24/23) Review of Nursing Notes Rev avail, and agree Past Medical History: Denies: Diabetes mellitus, Hypertension. Physical Exam Vital Signs Vital Signs First Documented: Result Date Time Pulse Ox 100 03/24 1622 B/P 111/58 03/24 1622 B/P Mean 75 03/24 1622 Temp 97.0 03/24 1622 Pulse 75 03/24 1622 Resp 18 03/24 1622 Last Documented: Result Date Time Pulse Ox 100 03/24 1622 B/P 111/58 03/24 1622 B/P Mean 75 03/24 1622 Temp 97.0 03/24 1622 Pulse 75 03/24 1622 Resp 18 03/24 1622 Review of Vital Signs Reviewed Focused PE General/Const General/Const Alert, No acute distress, Well appearing, Well developed, Not toxic appearing MS Head Head Atraumatic Ears/Nose/Throat Ears/Nose/Throat Airway patent, Mucous membranes moist, Pharynx NL MS Neck Neck Supple, No meningismus, No adenopathy Resp/Chest Respiratory/Chest Breath sounds NL, Breath sounds = bilat, No respiratory distress Cardiovascular Cardiovascular Heart rate NL, Regular rhythm, Heart sounds NL Abdomen/GI Abdomen/GI Soft, Non-tender MS Back Back No midline vertebral tend MS Lower Extrem Lower Ext/Pelvis/MS Neurologic intact, Vascular intact, No edema Skin Skin No rash, Warm Neurologic Neurologic Oriented X3, Speech NL, No motor deficits, No sensory deficits, CN II - XII intact, Reflexes equal bilat, Cerebellar NL, Memory NL, Gait NL Interpretation Diagnostics Lab Results Interpretation Results Laboratory Tests 03/24/23 1625: [Embedded Image Not Available] Laboratory Tests: 03/24 03/24 1625 1625 Chemistry Sodium (133 - 145 MMOL/L) 142 Potassium (3.6 - 5.2 MMOL/L) 3.3 L Chloride (100 - 108 MMOL/L) 107 Carbon Dioxide (22 - 32 MMOL/L) 23 BUN (6 - 20 MG/DL) 12 Creatinine (0.60 - 1.00 MG/DL) 0.88 Estimated GFR (MDRD) (58 - 135) 81 Glucose (65 - 99 MG/DL) 101 H Calcium (8.7 - 10.5 MG/DL) 8.8 Total Bilirubin (0.0 - 1.0 MG/DL) 0.7 AST (15 - 37 Units/L) 17 ALT (30 - 65 Units/L) 22 L Alkaline Phosphatase (50 - 136 Units/L) 68 Troponin I High Sens (< 51 ng/L) < 4 Total Protein (6.4 - 8.2 G/DL) 6.3 L Albumin (3.4 - 5.0 G/DL) 3.5 Globulin (1.5 - 3.8 G/DL) 2.8 Albumin/Globulin Ratio (1.1 - 2.2) 1.3 HCG, Qual (NEGATIVE) NEGATIVE Coagulation D-Dimer Quant (PE/DVT) (0 - 400 D-DU) < 100 Hematology WBC (4.80 - 10.80 x10 3/uL) 10.44 RBC (4.2 - 5.4 x10 6/uL) 4.07 L Hgb (12.0 - 16.0 G/DL) 12.1 Hct (37 - 47 %) 36.4 L MCV (81 - 99 FL) 89.4 MCH (27 - 31 PG) 29.7 MCHC (33 - 37 G/DL) 33.2 RDW Coeff of Kyle (11.5 - 14.5 %) 12.5 Plt Count (150 - 450 x10 3/uL) 162 MPV (7.4 - 10.4 FL) 10.2 Neut % (Auto) (42 - 86 %) 84.8 Lymph % (Auto) (24 - 44 %) 7.1 L [place] % (Auto) (0.0 - 4.0 %) 7.8 H Eos % (Auto) (0.0 - 2.7 %) 0.2 Baso % (Auto) (0.0 - 0.5 %) 0.1 Eos # (Auto) (0.0 - 0.5 x10 3/uL) 0.02 Baso # (Auto) (0.0 - 0.2 x10 3/uL) 0.01 Absolute Neuts (auto) (1.8 - 7.7 x10 3/uL) 8.86 H Absolute Lymphs (auto) (1.0 - 4.8 x10 3/uL) 0.74 L Absolute Monos (auto) (0.0 - 0.8 x10 3/uL) 0.81 H Lab Statement Laboratory studies reviewed and considered in the medical decision-making. ECG #1 Interpretation ECG Documented in MUSE Yes Date 03/24/23 Time 1628 Interpreted by ED physician NL ECG Interpretation Normal rate, Normal sinus rhythm, No acute ischemic changes, No STEMI, Normal QRS, Normal ST waves, Normal T waves Re-Evaluation MDM Free Text MDM Notes Free Text MDM Notes The patient's labs were reviewed and were unremarkable. Due to the second episode of syncope she was advised admission for further work-up and observation. She declines. She states she will follow-up with her doctor tomorrow. She was discharged with good vital signs, ambulatory, and back to her baseline. )( Re-Evaluation/Progress #1 )( Re-Eval Status Improved ED Course Medication(s) Ordered Medication(s) Ordered: Electrolytic, Caloric, And Rao Sig/Astrid Start time Last Medication Dose Route Stop Time Status Admin Potassium Chloride 40 MEQ X1ED STA 03/24 1703 DC PO 03/24 1704 Sodium Chloride 1,000 ML X1ED STA 03/24 1624 DC 03/24 IV 03/24 1723 1630 Differential Diagnosis )( Differential Diagnosis Arrhythmia, Dehydration, Electrolyte disorder, Heat illness, Orthostasis, Seizure, Vasovagal syncope Patient Discharge Departure Vital Signs/Condition Vital Signs First Documented: Result Date Time Pulse Ox 100 03/24 1622 B/P 111/58 03/24 1622 B/P Mean 75 03/24 1622 Temp 97.0 03/24 1622 Pulse 75 03/24 1622 Resp 18 03/24 1622 Last Documented: Result Date Time Pulse Ox 100 03/24 1622 B/P 111/58 03/24 1622 B/P Mean 75 03/24 1622 Temp 97.0 03/24 1622 Pulse 75 03/24 1622 Resp 18 03/24 1622 All vital signs available at the time of this entry have been reviewed. Condition Stable, Improved Clinical Impression Clinical Impression Primary Impression: Syncope Disposition Decision Other )( Time 1730 Against Medical Advice Yes Discharge/Care Plan Counseled Regarding Diagnosis, Lab results Patient Instructions ED Fainting, Uncertain Cause Against Medical Advice AMA Note 1 [ AMA Request from Patient Cognition Alert, Oriented X 3, Answers appropriate, Speaks coherently, Thought process intact, Understands AMA Competent to Decide Yes Reason for leaving AMA Personal beliefs Discussed Options to AMA Yes Present for Explanation Myself, Nurse Care Info Explained Clinical information, Relevant issues, Medical treatment, Medical tests, Reason for admission Risk Info Explained Possibility of , Permanent disability, Worsening of condition, Neurological dysfunction, Cardiac dysfunction, Mental impairment, Loss of current lifestyle Patient Acknowledges Understanding care info, Understanding risk info at 0658 RPT #:[id number] END OF REPORT [facility] 2023-03-24 16:22:00 [id number] [place], [place] PATIENT NAME: ZULEIMA OLSON ADMIT DATE: 03/24/23 ACCOUNT NO: [id number] ROOM NO: AGE: 47 REPORT TYPE: ELECTROCARDIOGRAM SEX: F : 73 ADMITTING PHYSICIAN: ATTENDING PHYSICIAN:Luis Eduardo Escoabr MD Order: [id number] Test Reason : Test Date/Time Stamp: SunMar 24 2023 16:22:21 Blood Pressure : / mmHG Vent. Rate : 071 BPM Atrial Rate : 071 BPM P-R Int : 132 ms QRS Dur : 084 ms QT Int : 418 ms P-R-T Axes : 047 072 061 degrees QTc Int : 454 ms Normal sinus rhythm with sinus arrhythmia Cannot rule out Anterior infarct , age undetermined Abnormal ECG Confirmed by LUIS EDUARDO ESCOBAR DO ([id number]), map editor YULIA ALEJANDRA ([id number]) on 06/21/2023 9:32:53 AM Referred By: Self Referred Confirmed by:LUIS EDUARDO ESCOBAR DO at 0932 PATIENT NAME: ZULEIMA OLSON [facility]
[2025-05-28] MEDS ORDERED: ONDANSETRON 4 MG/2 ML VIAL ONE (16:24)
[2025-05-28] MEDS ORDERED: MORPHINE 4 MG/ML SYR ONE (16:25)
[2025-05-28] MEDS ORDERED: NA CHLORIDE 0.9% 1,000 ML ONE (16:25)
[2025-05-28 16:41] LABS: Absolute Lymphocytes (CBC) 2.0 K/uL (0.7-4.9); Hematocrit 38.7 % (36.0-45.0); Hemoglobin 13.1 g/dL (12.0-15.0); MCH 30.1 pg (27.0-35.0); MCHC 33.9 g/dL (32.0-36.0); MCV 88.5 fL (80-100); MPV 8.0 fL (7.6-11.3); Nucleated RBC Absolute Count 0.0 (0-0); Nucleated Red Blood Cells % 0.1 % (0-0); RBC Red Blood Cell Count 4.37 M/uL (3.86-4.86); White Blood Count 5.80 thou/uL (4.3-10.9)
[2025-05-28 17:00] LABS: Anion Gap 10.9 mEq/L (5.0-15.0); BUN Blood Urea Nitrogen 14 mg/dL (7-18); Glucose Level 103 mg/dL (74-106); NT PRO-BNP 79 pg/mL (<125); Potassium 3.9 mEq/L (3.5-5.1)
[2025-05-28 17:01] LABS: Troponin High Sensitivity < 3.0 pg/mL (<58.9)
--- NOTE | 2025-05-28 17:14 | RAD REPORT ---
EXAMINATION: ONE VIEW CHEST XR CLINICAL INDICATION: Female, 49 years old.,PAIN TECHNIQUE: Frontal chest projection is submitted. Examination is limited by patient positioning and t echnique. COMPARISON: 04/04/2018 FINDINGS: The lungs are well inflated and clear. No pneumothorax or sizable effusion. The heart is normal in s ize. Mediastinal contours are unremarkable. IMPRESSION: No acute intrathoracic abnormalities.
--- NOTE | 2025-05-28 18:02 | RAD REPORT ---
EXAM: CT brain without contrast HISTORY: SWELLING COMPARISON: None TECHNIQUE: Multiple contiguous axial images were obtained and a CT of the brain without contrast. Sag ittal and coronal reformats were performed. FINDINGS: No evidence of hydrocephalus, intracranial hemorrhage, or extra-axial fluid collection. The brain is normal in morphology. The calvarium is intact. The visualized paranasal sinuses and mastoid air cells are essentially clear . IMPRESSION: No evidence of acute intracranial abnormality. EXAM: CT of the cervical spine without contrast HISTORY: SWELLING COMPARISON: None TECHNIQUE: Multiple contiguous axial images were obtained in a CT of the cervical spine without contr ast. Sagittal and coronal reformats were performed. FINDINGS: The vertebral bodies demonstrate normal height. Gentle reversal of lordosis with minimal sp ondylolisthesis secondary to endplate, uncovertebral, and facet joint remodeling, without significant subluxation. No evidence of acute fracture or subluxation.. Mild degenerative changes are present. No prevertebral soft tissue swelling is seen. The posterior facets are well aligned. Normal alignment of the skull base with the cervical spine is seen. The lung apices are unremarkable. IMPRESSION: 5 No evidence of acute osseous abnormality of the cervical spine. Degenerative changes as above.
--- NOTE | 2025-05-28 18:30 | ER ---
Nurse's Notes [facility] Name: Zuleima Medina Age: 49 yrs Sex: Female : 1975 Arrival Date: 05/28/2025 Time: 16:05 Bed 4 Private MD: Diagnosis: Headache;Dizziness and giddiness Presentation: 05/28 16:21 Chief complaint: Patient states: intermittent migraines that started about 2 weeks ago me1 with associated nausea, lightheadedness, SOB, blurred vision and chest pain. Denies these symptoms at this time states, "I just dont feel good. This is not like me." Took 2 advil at 2 pm today. Coronavirus screen: Vaccine status: Patient reports being unvaccinated. Ebola Screen: No symptoms or risks identified at this time. Initial Sepsis Screen: Does the patient meet any 2 criteria? No. Patient's initial sepsis screen is negative. Does the patient have a suspected source of infection? No. Patient's initial sepsis screen is negative. Risk Assessment: Do you want to hurt yourself or someone else? Patient reports no desire to harm self or others. Onset of symptoms is unknown. 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 - Infectious Disease History:: Denies. - Social history:: Smoking status: Patient denies any tobacco usage or history of. Screenin:30 [facility] ED Fall Risk Assessment (Adult) History of falling in the last 3 months, jl7 including since admission No falls in past 3 months (0 pts) Confusion or Disorientation No (0 pts) Intoxicated or Sedated No (0 pts) Impaired Gait No (0 pts) Mobility Assist Device Used No (0 pt) Altered Elimination No (0 pt) Score/Fall Risk Level 0 - 2 = Low Risk Oriented to surroundings, Maintained a safe environment. Abuse screen: Denies threats or abuse. Denies injuries from another. Nutritional screening: No deficits noted. Tuberculosis screening: No symptoms or risk factors identified. Assessment: 16:30 General: Appears in no apparent distress. uncomfortable, Behavior is calm, cooperative, jl7 appropriate for age. Pain: Complains of pain in SUMM[place], body aches Pain does not radiate. Pain currently is 0 out of 10 on a pain scale. Pain began gradually. Neuro: [place]otti Agitation-Sedation Scale (RASS): +1 Restless Level of Consciousness is awake, alert, obeys commands, Oriented to person, place, time, situation. Cardiovascular: Patient's skin is warm and dry. Rhythm is regular. Respiratory: Airway is patent Respiratory effort is even, unlabored, labored, Respiratory pattern is regular, symmetrical. Derm: Skin is pink, warm \\T\\ dry. 18:00 Reassessment: Patient appears in no apparent distress at this time. No changes from jl7 previously documented assessment. Patient and/or family updated on plan of care and expected duration. Pain level reassessed. Patient is alert, oriented x 3, equal unlabored respirations, skin warm/dry/pink. Vital Signs: 16:21 BP 107 / 61; Pulse 67; Resp 17; Temp 98.3; Pulse Ox 99% ; Weight 77.11 kg; Height 5 ft. me1 9 in. ; Pain 0/10; 17:27 BP 115 / 70; Pulse 50; Resp 15; Pulse Ox 95% ; jl7 18:30 BP 108 / 71; Pulse 48; Resp 14; Pulse Ox 97% ; jl7 16:21 Body Mass Index 25.10 (77.11 kg, 175.26 cm) me1 16:21 Pain Scale: Adult mn1 ED Course: 16:06 Patient arrived in ED. mr 16:07 Reymundo Matthew, AL[facility] dr5 16:07 Matt Sharma MD is Attending Physician. dr5 16:19 Antony Ceja RN is Primary Nurse. jl7 16:24 Triage completed. me1 16:24 Arm band placed on Patient placed in an exam room. me1 16:27 EKG done, by ED staff, reviewed by Reymundo DALLAS. rk3 16:30 Patient has correct armband on for positive identification. Provided Education on: use jl7 of call jeong. Client placed on continuous cardiac and pulse oximetry monitoring. NIBP monitoring applied. traffic monitor specialist on. Pulse ox on. NIBP on. 16:30 Patient maintains SpO2 saturation greater than 95% on room air. jl7 16:35 Initial lab(s) drawn, by me, sent to lab. Inserted saline lock: 20 gauge in right jl7 antecubital area, using aseptic technique. Blood collected. Flushed with 10 mL NS. 17:03 XRAY Chest (1 view) In Process Unspecified. EDMS 17:20 CT Head C Spine In Process Unspecified. EDMS 18:29 Chintan Ugarte MD is Referral Physician. dr5 19:19 No provider procedures requiring assistance completed. IV discontinued, intact, jl7 bleeding controlled, No redness/swelling at site. Pressure dressing applied. Administered Medications: 16:30 Drug: NS 0.9% IV 1000 ml IV at 1000 ml once; to be given as a bolus over 60 minutes jl7 Route: IV; Rate: 1000 ml; Site: right antecubital; 18:00 Follow up: Response: No adverse reaction; IV Status: Completed infusion; IV Intake: jl7 1000ml 16:30 Drug: Ondansetron IVP 4 mg IVP once; over 2 minutes Route: IVP; Site: right antecubital;jl7 19:18 Follow up: Response: No adverse reaction jl7 16:53 Not Given (Patient Refused): morphineor iv 4 mg IVP once over 4 mins jl7 Medication: 16:30 VIS not applicable for this client. jl7 Intake: 18:00 IV: 1000ml; Total: 1000ml. jl7 Outcome: 18:29 Discharge ordered by . dr5 19:19 Discharged to home ambulatory, jl7 19:19 Condition: stable 19:19 Discharge instructions given to patient, Instructed on discharge instructions, follow up and referral plans. medication usage, Demonstrated understanding of instructions, follow-up care, medications, Prescriptions given X 3, 19:19 Patient left the ED. jl7 Signatures: Dispatcher [employer] EDWA Karen Cueto, Rafat Douglass mr Antony Ceja, JOSH RN jl7 Vangie Smiley RN RN me1 Reymundo Matthew, FARM OR RANCH ANIMAL CARETAKER-C FARM OR RANCH ANIMAL CARETAKER-Cdr5 Keke Whyte rk3 Corrections: (The following items were deleted from the chart) 16:25 16:21 Chief complaint: Patient states: intermittent migraines that started about 2 me1 weeks ago with associated nausea, lightheadedness, SOB, blurred vision and chest pain. Denies these symptoms at this time states, "I just dont feel good. This is not like me." me1
--- NOTE | 2025-05-28 18:30 | EDPHYS ---
Physician Documentation [facility] Name: Zuleima Medina Age: 49 yrs Sex: Female : 1975 Arrival Date: 05/28/2025 Time: 16:05 Bed 4 Private MD: ED Physician Matt Sharma HPI: 05/28 17:21 This 49 yrs old Female presents to ER via Wheelchair with complaints of Chest dr5 Pain, Blurred Vision, Fatigue. 17:21 Onset: The symptoms/episode began/occurred 2 week(s) ago. Patient is a 49-year-old dr5 female with history of syncope coming in with 2 weeks of intermittent migraine, chest pressure, and not feeling right. Patient states that she does not have a headache upon arrival but had 1 yesterday. Patient also reports that she does not feel yourself. Patient denies chest pain but reports that it is intermittent over the last 2 weeks.. LIFE SPECIALIST: 16:24 LMP N/A - Hysterectomy, Not me1 Historical: - Allergies: 16:24 No Known Drug Allergies; me1 - PMHx: 16:24 Angina pectoris; syncope; me1 - PSHx: 16:24 Total abdominal hysterectomy; me1 - Immunization history:: Adult Immunizations up to date. - Infectious Disease History:: Denies. - Social history:: Smoking status: Patient denies any tobacco usage or history of. ROS: 17:21 Constitutional: as per hpi dr5 Exam: 17:21 Constitutional: This is a well developed, well nourished patient who is awake, alert, dr5 and in no acute distress. Head/Face: Normocephalic, atraumatic. Eyes: Pupils equal round and reactive to light, extra-ocular motions intact. Lids and lashes normal. Conjunctiva and sclera are non-icteric and not injected. Cornea within normal limits. Periorbital areas with no swelling, redness, or edema. Neck: Trachea midline, no thyromegaly or masses palpated, and no cervical lymphadenopathy. Supple, full range of motion without nuchal rigidity, or vertebral point tenderness. No Meningismus. Chest/axilla: Normal chest wall appearance and motion. Nontender with no deformity. No lesions are appreciated. Cardiovascular: Regular rate and rhythm with a normal S1 and S2. Normal PMI, no JVD. No pulse deficits. Respiratory: Lungs have equal breath sounds bilaterally, clear to auscultation. No rales, rhonchi or wheezes noted. No increased work of breathing, no retractions or nasal flaring. Back: No spinal tenderness. No costovertebral tenderness. Full range of motion. Skin: Warm, dry with normal turgor. Normal color with no rashes, no lesions, and no evidence of cellulitis. MS/ Extremity: Pulses equal, no cyanosis. Neurovascular intact. Full, normal range of motion. Neuro: Awake and alert, GCS 15, oriented to person, place, time, and situation. Cranial nerves II-XII grossly intact. Motor strength 5/5 in all extremities. Sensory grossly intact. Cerebellar exam normal. Normal gait. Vital Signs: 16:21 BP 107 / 61; Pulse 67; Resp 17; Temp 98.3; Pulse Ox 99% ; Weight 77.11 kg; Height 5 ft. me1 9 in. ; Pain 0/10; 17:27 BP 115 / 70; Pulse 50; Resp 15; Pulse Ox 95% ; jl7 18:30 BP 108 / 71; Pulse 48; Resp 14; Pulse Ox 97% ; jl7 16:21 Body Mass Index 25.10 (77.11 kg, 175.26 cm) me1 16:21 Pain Scale: Adult me1 MDM: 16:07 Medical Screening Exam initiated dr5 17:21 ED course: Will get blood work, chest x-ray, CT scan of brain. Offered patient pain dr5 medication but patient declined as patient is not in pain at this time.. 18:55 Differential diagnosis: viral Infection, bacterial infection, URI, Electrolyte dr5 abnormality, NSTEMI, STEMI, intracranial hemorrhage, pseudotumor cerebri, migraine. Data reviewed: vital signs, nurses notes, lab test result(s), cardiac enzymes, troponin i, CBC, white blood cell count, hemoglobin, hematocrit, platelets, electrolytes, sodium, potassium, chloride, serum bicarbonate, BUN, creatinine, serum glucose, BNP, EKG, radiologic studies, plain films. Consideration of Admission/Observation Escalation of care including admission/observation considered. Admission considered patient found have intracranial hemorrhage. I considered the following discharge prescriptions or medication management in the emergency department I discussed and recommended Over The Counter medications, Medications were administered in the Emergency Department. See MAR. Independent interpretation of the following test(s) in the Emergency Department X-Ray: My interpretation is Independent rotation of x-ray does not reveal infiltrates.. Care significantly affected by the following chronic conditions: Syncope, Angina pectoris. Care significantly affected by the following Social Determinants of Health: Poor access to healthcare and/or lack of insurance, Poor access to transportation, Problems related to employment. Counseling: I had a detailed discussion with the patient and/or guardian regarding the historical points, exam findings, and any diagnostic results supporting the discharge/admit diagnosis, the presence of at least one elevated blood pressure reading (>120/80) during this emergency department visit, lab results, radiology results, the need for outpatient follow up, for definitive care, a family practitioner, a neurologist, to return to the emergency department if symptoms worsen or persist or if there are any questions or concerns that arise at home. Medication response: NS. Response to treatment: the patient's condition has returned to base line, the patient is now symptom free. Special discussion: I discussed with the patient/guardian in detail that at this point there is no indication for admission to the hospital. It is understood, however, that if the symptoms persist or worsen the patient needs to return immediately for re-evaluation. Based on the history and exam findings, there is no indication for further emergent testing or inpatient evaluation. I discussed with the patient/guardian the need to see the neurologist for further evaluation of the symptoms. ED course: Patient denies any symptoms at this time. All labs and CT scan and chest x-ray were printed and given to patient to take with her to neurology. All questions answered. Strict ER precautions given.. 05/28 16:21 Order name: Basic Metabolic Panel; Complete Time: 17:03 05/28 16:21 Order name: CBC with Diff; Complete Time: 17:05/28 16:21 Order name: NT PRO-BNP; Complete Time: 17:03 05/28 16:21 Order name: Troponin HS; Complete Time: 17:05/28 16:21 Order name: CT Head C Spine; Complete Time: 18:19 05/28 16:21 Order name: XRAY Chest (1 view); Complete Time: 17:15 05/28 16:21 Order name: Cardiac monitoring; Complete Time: 16:05/28 16:21 Order name: EKG - Nurse/Tech; Complete Time: 16:27 dr5 05/28 16:21 Order name: IV Saline Lock; Complete Time: 16:50 dr5 05/28 16:21 Order name: Labs collected and sent; Complete Time: 16:50 dr5 05/28 16:21 Order name: O2 Per Protocol; Complete Time: 16:23 dr5 05/28 16:21 Order name: O2 Sat Monitoring; Complete Time: 16:23 dr5 EC:23 Rate is 53 beats/min. Rhythm is regular. QRS [place] is Normal. MS interval is normal at dr5 132 msec. QRS interval is normal at 88 msec. QT interval is normal at 448 msec. Clinical impression: Normal ECG, Sinus bradycardia, and No evidence of ischemia. Administered Medications: 16:30 Drug: NS 0.9% IV 1000 ml IV at 1000 ml once; to be given as a bolus over 60 minutes jl7 Route: IV; Rate: 1000 ml; Site: right antecubital; 18:00 Follow up: Response: No adverse reaction; IV Status: Completed infusion; IV Intake: jl7 1000ml 16:30 Drug: Ondansetron IVP 4 mg IVP once; over 2 minutes Route: IVP; Site: right antecubital;jl7 19:18 Follow up: Response: No adverse reaction jl7 16:53 Not Given (Patient Refused): morphineor iv 4 mg IVP once over 4 mins jl7 Disposition: 05/29 13:37 Co-signature as Attending Physician, Matt Sharma MD I agree with the assessment and raul plan of care. Disposition Summary: 05/28/25 18:29 Discharge Ordered Notes: Location: Home dr5 Condition: Stable dr5 Diagnosis - Headache dr5 - Dizziness and giddiness dr5 Followup: dr5 - With: Emergency Department - When: As needed - Reason: Worsening of condition Followup: dr5 - With: Chintan Ugarte MD - When: 1 - 2 days - Reason: Recheck today's complaints, Continuance of care, Re-evaluation by your physician Discharge Instructions: - Discharge Summary Sheet dr5 - General Headache Without Cause dr5 - Near-Syncope dr5 Forms: - Medication Reconciliation Form dr5 - Prescription Opioid Use dr5 - Patient Portal Instructions dr5 - Leadership Thank You Letter dr5 Prescriptions: - Zofran 4 mg Oral Tablet - take 1 tablet ORAL route every 12 hours As needed; 20 tablet; Refills: 0, dr5 Product Selection Permitted - Tramadol 50 mg Oral Tablet - take 1 tablet ORAL route every 8 hours as needed; 12 tablet; Refills: 0, dr5 Product Selection Permitted - Medrol (Gucci) 4 mg Oral Tablets, Dose Pack - take 1 tablet ORAL route as directed - follow package instructions; 1 packet; dr5 Refills: 0, Product Selection Permitted Signatures: Dispatcher [employer] EDMatt Anguiano MD MD cha Leal, Jahala, RN RN jl7 Vangie Smiley, JOSH RN me1 Reymundo Matthew, PERSONNEL MONITOR-C PERSONNEL MONITOR-Cdr5 Corrections: (The following items were deleted from the chart) 05/28 16:22 16:22 Chest Single View+RAD.RAD.BRZ ordered. EDMS EDMS 17: 16:22 Test, Urine+UC.LAB.BRZ ordered. EDMS EDMS 17: 16:22 UA Rfx Nabeel Cult if indicated+U.LAB.BRZ ordered. EDMS EDMS
[2025-05-29 01:12] VITALS: TEMP 98.3
[2025-05-29 01:14] VITALS: BP 108/71; O2SAT 97
== END 2025-05-28 19:19 | disposition home or self-care (01) ==
LOC: ER 16:05 → MERGE 16:05 → ER 19:19
DX: R51.9 Headache, unspecified (principal); R42 Dizziness and giddiness; R07.89 Other chest pain
CPT/HCPCS: 36415; 70450; 71045; 72125; 80048; 83880; 84484; 85025; 93005; 96361; 96374; 99285; J2405; J7030